=== PATIENT | female | born 1930 | race Caucasian/White ===

== ENCOUNTER 2016-10-04 | Emergency (ER) | payer MEDICARE ==
[2016-10-04 09:35] LABS: HEMOGLOBIN 13.5 gm/dl (12.3-15.3); RED BLOOD COUNT 4.64 M/UL (4.00-5.10); WHITE BLOOD COUNT 6.3 K/UL (4.5-11.0)
[2017-02-08] MEDS ORDERED: LOPID TAB 600600 MG PO (16:52)
[2017-02-08] MEDS ORDERED: ENDOCET 10-3251 EACH PO (16:52)
[2017-02-08] MEDS ORDERED: NEURONTIN 400400 MG PO (16:52)
[2017-02-08] MEDS ORDERED: NORVASC 5 MG TAB5 MG PO (16:53)
[2017-02-08] MEDS ORDERED: METOPROLOL TART50 MG PO (16:53)
[2017-02-08] MEDS ORDERED: PROTONIX40 MG PO (16:54)
[2017-02-08] MEDS ORDERED: VENTOLIN HFA 66.7 GM INH (16:55)
[2017-02-08] MEDS ORDERED: ALBUTEROL0.63 MG/3 INH (16:56)
[2017-02-09] MEDS ORDERED: MEDROL DOSEPAK 24 MG PO (16:33)
[2017-02-09] MEDS ORDERED: FLONASE 0.05% N16 GM (16:34)
== END 2016-10-04 12:27 | disposition home or self-care (01) ==
PROVIDERS: Emergency Medicine
DX: J44.0 Chronic obstructive pulmonary disease with (acute) lower respiratory infection (principal); J20.9 Acute bronchitis, unspecified; I10 Essential (primary) hypertension; M19.90 Unspecified osteoarthritis, unspecified site; Z79.899 Other long term (current) drug therapy; Z88.0 Allergy status to penicillin; Z88.5 Allergy status to narcotic agent; Z88.8 Allergy status to other drugs, medicaments and biological substances
CPT/HCPCS: 36415; 36600; 71010; 80053; 82550; 82553; 82803; 83874; 83880; 84484; 85025; 93005; 94640; 94664; 96365; 96375; 99283; J0696; J2930; J7050

== ENCOUNTER → 2016-12-15 | Outpatient (CLI) | payer MEDICARE ==
[~2016-12-15] MED LIST: ALBUTEROL0.63 MG/3 INH; ENDOCET 10-3251 EACH PO; FLONASE 0.05% N16 GM; LOPID TAB 600600 MG PO; MEDROL DOSEPAK 24 MG PO; METOPROLOL TART50 MG PO; NEURONTIN 400400 MG PO; NORVASC 5 MG TAB5 MG PO; PROTONIX40 MG PO; VENTOLIN HFA 66.7 GM INH
== END ==
LOC: RAD 12:31
DX: M79.642 Pain in left hand (principal); M25.842 Other specified joint disorders, left hand
CPT/HCPCS: 73130

== ENCOUNTER 2020-09-18 14:37 | Emergency (ER) | payer MEDICARE ==
[~2020-09-18 14:37] MED LIST changes: +24HR ALLERGY REL5 MG PO; +ALBUTEROL1.25 MG/3 INH; +ALL DAY ALLERGY10 M2 PO; +ANTIVERT 12.512.5 MG PO; +BEVESPI INH; +CATAPRES 0.1MG0.1 MG PO; +ELIQUIS 5 MG TAB5 MG GT; +FUROSEMIDE20 MG PO; +GABAPENTIN400 MG PO; +GEMFIBROZIL600 MG PO; +MONTELUKAST SOD10 MG PO; +NITROGLYCERIN0.4 MG SL; +PROTONIX 40 MG40 M1 PO; +SURFAK 240 MG240 MG PO; +TOPROL XL50 MG PO; +VITAMIN D35000 UNI1 PO; +XARELTO15 MG PO; +ZANAFLEX 4 MG TA4 MG PO
== END 2020-09-18 20:00 | disposition home or self-care (01) ==
LOC: ER1 14:37
DX: S61.511A Laceration without foreign body of right wrist, initial encounter (principal); S20.211A Contusion of right front wall of thorax, initial encounter; S00.83XA Contusion of other part of head, initial encounter; S40.212A Abrasion of left shoulder, initial encounter; I10 Essential (primary) hypertension; J44.9 Chronic obstructive pulmonary disease, unspecified; Z23 Encounter for immunization; Z79.899 Other long term (current) drug therapy; W18.30XA Fall on same level, unspecified, initial encounter; Y92.009 Unspecified place in unspecified non-institutional (private) residence as the place of occurrence of the external cause
CPT/HCPCS: 70450; 70486; 71045; 72125; 73060; 73110; 90471; 90715; 99284